=== PATIENT | female | born 1950 | race Caucasian/White ===

== ENCOUNTER 2018-03-16 15:24 | Inpatient (IN) | payer OTHER ==
[~2018-03-16] VITALS: Ht 160 cm; Wt 82.0 kg
[2018-03-16 16:36] LABS: HEMATOCRIT 43.4 % (36.0-46.0); MCH 31.2 PG (29.0-34.0); MCHC 34.6 G/DL (30.0-36.0); MCV 90.2 FL (83-99); PLATELET COUNT 260 K/uL (156-360); RBC DIS.WIDTH-CV 12.9 % (11.8-14.6); RBC DIS.WIDTH-SD 42.5 % (39-53); RED BLOOD COUNT 4.81 M/uL (3.80-5.20); WHITE BLOOD COUNT 8.6 K/uL (4.1-10.2)
[2018-03-16 16:45] LABS: ALBUMIN 4.2 g/dL (3.2-4.8)
[2018-03-16 16:46] LABS: CHLORIDE 103 mEq/L (99-109); POTASSIUM 3.1 mEq/L (3.7-5.4); SODIUM 140 mEq/L (136-147)
[2018-03-16 16:48] LABS: GLUCOSE 104 mg/dL (70-99); TOTAL PROTEIN 7.3 g/dL (6.4-8.3)
[2018-03-16 16:50] LABS: TOTAL BILIRUBIN 0.3 mg/dL (0.0-1.0)
[2018-03-16 16:51] LABS: ALKALINE PHOSPHATASE 84 IU/L (3-129)
[2018-03-16 16:52] LABS: CREATININE 0.8 mg/dL (0.6-1.3); GFR ESTIMATE (CALCULATED) > 59 mL/min/
[2018-03-16 16:53] LABS: AST (GOT) 27 IU/L (2-34); UREA NITROGEN (BUN) 7 mg/dL (9-23)
[2018-03-16 16:54] LABS: ALT (GPT) 33 IU/L (3-49)
[2018-03-16 16:57] LABS: TROP-I INTERPRETATION NEGATIVE; TROPONIN-I < 0.01 ng/mL (0.0-0.30)
[2018-03-16] MEDS ORDERED: ZANTAC150 MG PO (19:31)
[2018-03-16] MEDS ORDERED: PREVACID30 MG PO (19:35)
[2018-03-16] MEDS ORDERED: DESYREL100 MG PO (19:36)
[2018-03-16] MEDS ORDERED: XANAX0.5 MG PO (19:38)
[2018-03-16] MEDS ORDERED: AMBIEN CR12.5 MG PO (19:39)
[2018-03-16] MEDS ORDERED: VENTOLIN HFA18 GM IH (19:40)
[2018-03-16] MEDS ORDERED: REQUIP0.5 MG PO (19:41)
[2018-03-16] MEDS ORDERED: ANTI-DIARRHEA2 MG PO (19:42)
[2018-03-16] MEDS ORDERED: MICROZIDE12.5 M1 PO (19:42)
[2018-03-16] MEDS ORDERED: RESTASIS MULTI5.5 ML BOTH EYES (19:43)
[2018-03-16 20:25] VITALS: BP 162/74
[2018-03-16] MEDS ORDERED: XALATAN2.5 ML BOTH EYES (21:14)
[2018-03-16] MEDS ORDERED: SINGULAIR10 MG PO (21:15)
[2018-03-16 21:20] LABS: APPEARANCE CLEAR ((CLEAR)); BILIRUBIN NEGATIVE; BLOOD SMALL; COLOR STRAW ((YELLOW)); GLUCOSE (STRIP) NEGATIVE; KETONES NEGATIVE; LEUKOCYTES MODERATE; NITRITE NEGATIVE; PROTEIN (STRIP) NEGATIVE; SPECIFIC GRAVITY 1.004 (1.000-1.030); UROBILINOGEN 0.2 MG/DL (0.2-1.0)
[2018-03-16 21:29] LABS: BACTERIA RARE /HPF; EPITHELIAL CELLS RARE /HPF; MUCUS NONE SEEN /LPF; RED BLOOD CELLS 0-5 /HPF (0-5); UCUL ADDED? YES
[2018-03-16 22:34] LABS: TROP-I INTERPRETATION NEGATIVE; TROPONIN-I < 0.01 ng/mL (0.0-0.30)
[2018-03-17 00:12] VITALS: BP 138/76
[2018-03-17 03:59] VITALS: BP 142/72
[2018-03-17 05:30] LABS: HEMATOCRIT 41.9 % (36.0-46.0); HEMOGLOBIN 14.4 G/DL (11.9-15.5); MCHC 34.4 G/DL (30.0-36.0); MCV 90.1 FL (83-99); PLATELET COUNT 261 K/uL (156-360); RBC DIS.WIDTH-CV 13.2 % (11.8-14.6); RBC DIS.WIDTH-SD 43.6 % (39-53); RED BLOOD COUNT 4.65 M/uL (3.80-5.20); WHITE BLOOD COUNT 5.7 K/uL (4.1-10.2)
[2018-03-17 06:12] LABS: CHLORIDE 101 MEQ/L (99-109); CREATININE 0.8 MG/DL (0.6-1.3); GFR ESTIMATE (CALCULATED) > 59 mL/min/; POTASSIUM 3.4 MEQ/L (3.7-5.4); SODIUM 137 MEQ/L (136-147); UREA NITROGEN (BUN) 9 mg/dL (9-23)
[2018-03-17 06:15] LABS: GLUCOSE 196 mg/dL (70-99)
[2018-03-17 07:42] VITALS: BP 159/78
[2018-03-17 08:25] LABS: TROP-I INTERPRETATION NEGATIVE; TROPONIN-I < 0.01 ng/mL (0.0-0.30)
[2018-03-17 11:35] VITALS: BP 190/95
[2018-03-17 15:16] VITALS: BP 138/82
[2018-03-17 21:05] VITALS: BP 161/92
[2018-03-18] VITALS (7 sets, daily range): BP systolic 130–147; BP diastolic 68–85
[2018-03-19 03:30] VITALS: BP 136/63
[2018-03-19 08:22] VITALS: BP 138/68
[2018-03-19 09:16] LABS: CHLORIDE 98 MEQ/L (99-109); CREATININE 0.9 MG/DL (0.6-1.3); GFR ESTIMATE (CALCULATED) > 59 mL/min/; POTASSIUM 3.5 MEQ/L (3.7-5.4); SODIUM 135 MEQ/L (136-147); UREA NITROGEN (BUN) 18 mg/dL (9-23)
[2018-03-19 09:17] LABS: GLUCOSE 99 mg/dL (70-99)
[2018-03-19 11:13] VITALS: BP 175/88
[2018-03-19] MEDS ORDERED: LEVAQUIN750 MG PO (14:12)
[2018-03-19] MEDS ORDERED: SPIRIVA RESPIMAT4 GM IH (14:12)
[2018-03-19] MEDS ORDERED: SYMBICORT60 INHALAT IH (14:13)
[2018-03-19] MEDS ORDERED: MEDROL DOSEPAK4 MG PO (14:14)
[2018-03-19 15:11] VITALS: BP 138/82
== END 2018-03-19 16:32 | disposition home or self-care (01) | DRG 202 ==
LOC: EME 15:24 → 2EAST 18:41 → EDOF 18:41 → ENRESERV 18:44 → 2EAST 20:04
PROVIDERS: Emergency Medicine Emergency Medical Services; Hospitalist; Internal Medicine
DX: J20.9 Acute bronchitis, unspecified (principal); J44.0 Chronic obstructive pulmonary disease with (acute) lower respiratory infection; J44.1 Chronic obstructive pulmonary disease with (acute) exacerbation; N39.0 Urinary tract infection, site not specified; E87.6 Hypokalemia; R60.0 Localized edema; I10 Essential (primary) hypertension; K21.9 Gastro-esophageal reflux disease without esophagitis; F32.9 Major depressive disorder, single episode, unspecified; E66.9 Obesity, unspecified; Z68.32 Body mass index [BMI] 32.0-32.9, adult; Z87.891 Personal history of nicotine dependence; Z88.0 Allergy status to penicillin; Z88.2 Allergy status to sulfonamides
CPT/HCPCS: 71046; 71275; 80048; 80053; 81003; 83880; 84484; 85027; 85379; 87070; 87077; 87086; 87186; 87205; 93005; 93970; 94640; 94640 76; 94799; 99202; 99281; 99285; J1650; J1885; J1956; J2405; J2920; J2930; J3475; J7040